=== PATIENT | male | born 1955 | race Caucasian/White ===

== ENCOUNTER 2019-06-11 08:11 | Emergency (ER) | payer BC ==
[2019-06-11] MEDS ORDERED: Diazepam 2 MG Tab PO ONE (09:53)
--- NOTE | 2019-06-11 09:56 | EDM.PDOC ---
<Machelle Mclain - Last Filed: 06/11/19 09:39> ED HPI GENERAL MEDICAL PROBLEM - General Chief Complaint: Neuro Symptoms/Deficits Stated Complaint: DIZZY AND LT LEG PAIN Time Seen by Provider: 06/11/19 09:14 Source of Information: Reports: Patient, Significant Other History Limitations: Reports: No Limitations - History of Present Illness INITIAL COMMENTS - FREE TEXT/NARRATIVE: Patient is a pleasant 64-year-old male with a history of chronic pain and a pain pump implanted on his right side presents to the ED today for dizziness that has been present for the past five weeks. He states he feels like he is spinning and the room is still. This has caused him to be nauseous at times to the point where he has almost vomited. He has a Dilaudid pain pump for nerve entrapment in his abdomen from multiple hernia repairs. His reports that he goes in to get the pump refilled every three months and the dose is increased by 7% each time she believes. It was last refilled May 01, 2019. Roughly four days after it was filled the patient developed dizziness. He went to the [facility] to be evaluated for the dizziness and left hand and facial numbness. The [facility] told him to take Dramamine and go to his PCP. The Dramamine did not help the dizziness. The next day he got in to see Dr. Cardozo, his PCP, who worked him up for a stroke, including a CT scan of his head, a carotid US, and an echocardiogram, which were all negative. Dr. Cardozo diagnosed him with Benign Paroxysmal Positional Vertigo and sent him to PT for evaluation and treatment. He has seen PT a couple times and has had the Wyatt maneuvers done with no relief from the dizziness. He has also gone to his chiropractor for manipulations of his neck with no relief from the dizziness either. His recently started giving him Benadryl per Dr. Cardozo recommendation and this has not helped either. He also reports left knee pain that started after he fell about two months ago. He has bilateral knee replacements. He is worried that he may have damaged his left artificial knee when he fell. He cannot remember how he fell or what part of his body he hit. The pain increases with weight-bearing activities. He also reports he has headaches intermittently throughout the past month. He has a headache currently and rates it a 5/10 located on the top of his head. Duration: Week(s):, Constant Left Knee Pain Score (Numeric/FACES): 8 - Related Data Allergies Allergy/AdvReac Type Severity Reaction Status Date / Time carbamazepine [From Tegretol] Allergy Liver Verified 06/11/19 08:46 Problems morphine Allergy Itching Verified 06/11/19 08:46 oxycodone Allergy Itching Verified 06/11/19 08:46 Home Meds: Home Meds Aspirin [Halfprin] 81 mg PO Q48H 06/11/19 [History] Carbidopa/Levodopa [Carbidopa-Levo 25-100 MG ODT] 2 tab PO BEDTIME 06/11/19 [ History] Cyclobenzaprine [Flexeril] 10 mg PO BID 06/11/19 [History] Diclofenac Sodium [Voltaren 1% Gel] 2 gram TOP QID 06/11/19 [History] FLUoxetine HCl [Fluoxetine HCl] 60 mg PO DAILY 06/11/19 [History] Fish Oil/[place]-3 Fatty Acids [Fish Oil 1,000 MG] 1,000 mg PO DAILY 06/11/19 [ History] Gabapentin [Neurontin] 600 mg PO TID 06/11/19 [History] HYDROmorphone [Dilaudid] 4 mg PO Q4H PRN 06/11/19 [History] Multivitamin [Multivitamins] 1 each PO DAILY 06/11/19 [History] Pravastatin [Pravachol] 40 mg PO DAILY 06/11/19 [History] Tamsulosin [Flomax] 0.4 mg PO DAILY 06/11/19 [History] Past Medical History - Past Surgical History GI Surgical History: Reports: Hernia, Abdominal Musculoskeletal Surgical History: Reports: Knee Replacement Social & Family History - Tobacco Use Smoking Status *Q: Never Smoker - Caffeine Use Caffeine Use: Reports: Coffee - Recreational Drug Use Recreational Drug Use: No ED ROS GENERAL - Review of Systems Review Of Systems: See Below Constitutional: Reports: No Symptoms. Denies: Fever, Chills, Weakness, Decreased Appetite HEENT: Reports: Vertigo. Denies: Ear Pain, Eye Pain, Throat Pain Respiratory: Reports: No Symptoms. Denies: Shortness of Breath, Wheezing, Cough Cardiovascular: Reports: No Symptoms. Denies: Chest Pain, Edema, Lightheadedness, Syncope GI/Abdominal: Reports: No Symptoms. Denies: Abdominal Pain, Diarrhea, Nausea, Vomiting : Reports: No Symptoms. Denies: Dysuria Musculoskeletal: Reports: Joint Pain (left knee), Joint Swelling (left knee). Denies: Neck Pain, Back Pain Skin: Reports: No Symptoms. Denies: Rash, Erythema Neurological: Reports: Dizziness, Headache. Denies: Numbness, Syncope, Tingling , Weakness Psychiatric: Reports: No Symptoms ED EXAM, NEURO - Physical Exam Exam: See Below Exam Limited By: No Limitations General Appearance: Alert, WD/WN, No Apparent Distress Eye Exam: Bilateral Eye: Nystagmus (with lateral eye movements), PERRL Ears: Normal External Exam, Normal Canal, Hearing Grossly Normal, Normal TMs Nose: Normal Inspection, Normal Mucosa, No Blood Throat/Mouth: Normal Inspection, Normal Lips, Normal Teeth, Normal Gums, Normal Oropharynx, Normal Voice, No Airway Compromise Head Exam: Atraumatic, Normocephalic Neck: Normal Inspection, Supple, Non-Tender, Full Range of Motion Respiratory/Chest: No Respiratory Distress, Lungs Clear, Normal Breath Sounds, No Accessory Muscle Use, Chest Non-Tender Cardiovascular: Normal Peripheral Pulses, Regular Rate, Rhythm, No Edema, No Gallop, No Murmur GI/Abdominal: Normal Bowel Sounds, Soft, No Organomegaly, No Distention, No Mass , Tender (left quadrants from multiple hernia repairs and nerve entrapment in mesh) Neurological: Alert, Normal Mood/Affect, Normal Dorsiflexion, CN II-XII Intact, Normal Plantar Flexion, No Motor/Sensory Deficits, Oriented x 3 Back Exam: Normal Inspection, Full Range of Motion (for patient's ability) Extremities: No Pedal Edema, Normal Capillary Refill, Joint Swelling (mild left knee), Limited Range of Motion (left knee due to pain) Psychiatric: Normal Affect, Normal Mood Skin Exam: Warm, Dry, Intact, Normal Color, No Rash Course - Vital Signs Last Recorded V/S: Last Vital Signs Temp 96.7 F L 06/11/19 08:41 Pulse 79 06/11/19 08:41 Resp 10 L 06/11/19 08:41 BP 123/78 06/11/19 08:41 Pulse Ox 78 L 06/11/19 11:26 - Orders/Labs/Meds Orders: Active Orders 24 hr Category Date Time Status Cardiac Monitoring [RC] . DIRECTED Care 06/11/19 09:53 Active Oxygen Therapy [RC] ASDIRECTED Care 06/11/19 11:26 Active Labs: Laboratory Tests 06/11/19 06/11/19 Range/Units 10:35 10:35 WBC 5.27 (4.23-9.07) K/mm3 RBC 5.33 (4.63-6.08) M/mm3 Hgb 13.4 L (13.7-17.5) gm/dl Hct 42.5 (40.1-51.0) % MCV 79.7 (79.0-92.2) fl MCH 25.1 L (25.7-32.2) pg MCHC 31.5 L (32.2-35.5) g/dl RDW Std Deviation 66.2 H (35.1-43.9) fL Plt Count 187 (163-337) K/mm3 MPV 9.0 L (9.4-12.3) fl Neut % (Auto) 65.8 (34.0-67.9) % Lymph % (Auto) 22.8 (21.8-53.1) % [place] % (Auto) 7.4 (5.3-12.2) % Eos % (Auto) 3.4 (0.8-7.0) Baso % (Auto) 0.6 (0.1-1.2) % Neut # (Auto) 3.47 (1.78-5.38) K/mm3 Lymph # (Auto) 1.20 L (1.32-3.57) K/mm3 [place] # (Auto) 0.39 (0.30-0.82) K/mm3 Eos # (Auto) 0.18 (0.04-0.54) K/mm3 Baso # (Auto) 0.03 (0.01-0.08) K/mm3 Sodium 140 (136-145) mEq/L Potassium 4.5 (3.5-5.1) mEq/L Chloride 103 (98-107) mEq/L Carbon Dioxide 30 (21-32) mEq/L Anion Gap 11.5 (5-15) BUN 16 (7-18) mg/dL Creatinine 0.7 (0.7-1.3) mg/dL Est Cr Clr Drug Dosing 94.47 mL/min Estimated GFR (MDRD) > 60 (>60) mL/min BUN/Creatinine Ratio 22.9 H (14-18) Glucose 99 (80-115) mg/dL Calcium 9.0 (8.5-10.1) mg/dL Magnesium 1.8 (1.8-2.4) mg/dl Total Bilirubin 0.7 (0.2-1.0) mg/dL AST 20 (15-37) U/L ALT 29 (16-63) U/L Alkaline Phosphatase 112 (46-116) U/L Total Protein 6.6 (6.4-8.2) g/dl Albumin 3.5 (3.4-5.0) g/dl Globulin 3.1 gm/dL Albumin/Globulin Ratio 1.1 (1-2) Meds: Medications Discontinued Medications Generic Name Dose Route Start Last Admin Trade Name Freq PRN Reason Stop Dose Admin Diazepam 2 mg 06/11/19 09:53 06/11/19 10:29 Valium PO 06/11/19 09:54 2 mg ONETIME ONE Administration Departure - Departure Disposition: Home, Self-Care 01 Clinical Impression: Vertigo - Discharge Information Referrals: Scott Cardozo MD [Primary Care Provider] - 1 Week Forms: ED Department Discharge Additional Instructions: Take your medication as prescribed. Call Jasmin Lewis and let her know what is going on. I will call you if she calls me back. Follow up with Dr Umaña an polisher dial at [facility] tomorrow at 1:30. Please come early to register. Please return if you are worse. Sepsis Event Note - Evaluation Sepsis Screening Result: No Definite Risk - Focused Exam Vital Signs: Vital Signs Temp Pulse Resp BP Pulse Ox Pulse Ox 06/11/19 11:26 78 L 06/11/19 08:41 96.7 F L 79 10 L 123/78 86 L Date Exam was Performed: 06/11/19 Time Exam was Performed: 09:39 - My Orders Last 24 Hours: My Active Orders 06/11/19 09:53 Cardiac Monitoring [RC] . DIRECTED 06/11/19 11:26 Oxygen Therapy [RC] ASDIRECTED - Assessment/Plan Last 24 Hours: My Active Orders 06/11/19 09:53 Cardiac Monitoring [RC] . DIRECTED 06/11/19 11:26 Oxygen Therapy [RC] ASDIRECTED <Jaiden Zapien - Last Filed: 06/11/19 13:01> Course - Re-Assessments/Exams Free Text/Narrative Re-Assessment/Exam: 06/11/19 12:54 I examined the patient myself and I agree with Machelle's assessment and plan. I ordered labs and some valium 2mg. He did not do good with the valium. It slowed down his respirations. His CBC and CMP look good. The patient was worked up by Dr Cardozo for a stroke. He had a CT, carotid US and echo. All that looked good. He called his pain specialist and they advised him to go to the ER. He also went to PT. He has been using antivert and benadryl and nothing is working. I tried calling JASWINDER Odell his pain specialist but I had to leave a message. I did make an appointment for him to see Dr Umaña at [facility]. Dr Umaña does vertigo assessments. 06/11/19 12:59 The x-ray of his knee shows arthritis and joint prosthesis with no acute changes. Departure - Departure Time of Disposition: 13:00 Condition: Good - Discharge Information *PRESCRIPTION DRUG MONITORING PROGRAM REVIEWED*: Not Applicable *COPY OF PRESCRIPTION DRUG MONITORING REPORT IN PATIENT BRIANNE: Not Applicable Sepsis Event Note - Focused Exam Date Exam was Performed: 06/11/19 Time Exam was Performed: 12:54
--- NOTE | 2019-06-11 11:53 | CR ---
Left knee: Four views of the left knee were obtained. Comparison: Prior left knee exam of 03/10/11. Knee prosthesis is seen. Components are aligned. Underlying bony structures are intact. No acute fracture or dislocation is seen. Joint effusion is noted. Impression: 1. Left knee prosthesis. 2. No acute fracture is appreciated. 3. Joint effusion within the knee. Diagnostic code #3 This report was dictated in [place] Standard Time
== END 2019-06-11 13:15 | disposition home or self-care (01) ==
LOC: JD.ED 08:11
DX: R42 Dizziness and giddiness (principal); M25.562 Pain in left knee; Z96.653 Presence of artificial knee joint, bilateral; Z88.8 Allergy status to other drugs, medicaments and biological substances; Z88.5 Allergy status to narcotic agent; Z79.82 Long term (current) use of aspirin; W19.XXXA Unspecified fall, initial encounter
CPT/HCPCS: 36415; 73564; 80053; 83735; 85025; 99284; A9270; 99283

== ENCOUNTER 2021-02-07 12:03 | Emergency (ER) | payer BC, MEDICARE ==
[2021-02-07] MEDS ORDERED: Sodium Chloride 0.9% 10 ML Syringe FLUSH PRN ×2 (12:52→13:33)
[2021-02-07] MEDS ORDERED: Iopamidol 755 Mg/ML 100 ML Bottle IVPUSH ONE (13:33)
[2021-02-07] MEDS ORDERED: Sodium Chloride 0.9% 100 ML IV SCH (13:45)
--- NOTE | 2021-02-07 13:53 | EDM.PDOC ---
ED HPI GENERAL MEDICAL PROBLEM - General Chief Complaint: Chest Pain Stated Complaint: POSS BLOOD CLOT IN LUNGS Time Seen by Provider: 02/07/21 12:28 Source of Information: Reports: Patient, Provider History Limitations: Reports: No Limitations - History of Present Illness INITIAL COMMENTS - FREE TEXT/NARRATIVE: The patient presents with chest pain. The pain is on the left side. He said it started yesterday after moving a bucket. He went tot he clinic in [place] and they sent him here. They are worried about a PE. He has no fever, chills, cough, shortness of breath, abdominal pain, nausea or vomiting. He has no history of PE or DVT. His oxygen saturations are lower but he is aware of that. He is on pain medications for his back. He has no pain or swelling in his legs. Onset: Gradual Duration: Day(s): Location: Reports: Chest Quality: Reports: Sharp Severity: Moderate Improves with: Reports: None Worsens with: Reports: None Associated Symptoms: Reports: Chest Pain. Denies: Cough, Fever/Chills - Related Data Allergies Allergy/AdvReac Type Severity Reaction Status Date / Time carbamazepine [From Tegretol] Allergy Severe Liver Verified 02/07/21 12:33 Problems morphine Allergy Itching Verified 02/07/21 12:33 oxycodone Allergy Itching Verified 02/07/21 12:33 Home Meds: Home Meds Aspirin [Halfprin] 81 mg PO Q48H 06/11/19 [History] Carbidopa/Levodopa [Carbidopa-Levo 25-100 MG ODT] 2 tab PO BEDTIME 06/11/19 [History] Cyclobenzaprine [Flexeril] 10 mg PO BID 06/11/19 [History] Diclofenac Sodium [Voltaren 1% Gel] 2 gram TOP QID 06/11/19 [History] FLUoxetine HCl [Fluoxetine HCl] 60 mg PO DAILY 06/11/19 [History] Fish Oil/[place]-3 Fatty Acids [Fish Oil 1,000 MG] 1,000 mg PO DAILY 06/11/19 [History] Gabapentin [Neurontin] 600 mg PO TID 06/11/19 [History] HYDROmorphone [Dilaudid] 4 mg PO Q4H PRN 06/11/19 [History] Multivitamin [Multivitamins] 1 each PO DAILY 06/11/19 [History] Pravastatin [Pravachol] 40 mg PO DAILY 06/11/19 [History] Tamsulosin [Flomax] 0.4 mg PO DAILY 06/11/19 [History] Past Medical History - Past Surgical History GI Surgical History: Reports: Hernia, Abdominal Musculoskeletal Surgical History: Reports: Knee Replacement Social & Family History - Tobacco Use Tobacco Use Status *Q: Former Tobacco User Used Tobacco, but Quit: Yes Month/Year Tobacco Last Used: "many Many years ago" - Caffeine Use Caffeine Use: Reports: Coffee - Recreational Drug Use Recreational Drug Use: No ED ROS GENERAL - Review of Systems Review Of Systems: See Below Constitutional: Reports: No Symptoms HEENT: Reports: No Symptoms Respiratory: Reports: No Symptoms Cardiovascular: Reports: Chest Pain Endocrine: Reports: No Symptoms GI/Abdominal: Reports: No Symptoms : Reports: No Symptoms Musculoskeletal: Reports: No Symptoms ED EXAM, GENERAL - Physical Exam Exam: See Below Exam Limited By: No Limitations General Appearance: Alert, No Apparent Distress Ears: Normal External Exam Nose: Normal Inspection Throat/Mouth: Normal Inspection Head: Atraumatic, Normocephalic Neck: Normal Inspection Respiratory/Chest: No Respiratory Distress, Lungs Clear, Normal Breath Sounds Cardiovascular: Regular Rate, Rhythm, No Edema, No Murmur GI/Abdominal: Soft, Non-Tender, No Organomegaly, No Mass Back Exam: Normal Inspection Extremities: Normal Inspection #1 Interpretation EKG Date: 02/07/21 Time: 13:47 Rhythm: NSR Rate (Beats/Min): 62 Balsam: LAD-Left Balsam Deviation P-Wave: Present QRS: Normal ST-T: Normal QT: Normal Course - Vital Signs Last Recorded V/S: Last Vital Signs Temp 96.7 F L 02/07/21 12:33 Pulse 67 02/07/21 14:51 Resp 14 02/07/21 14:51 BP 117/69 02/07/21 14:51 Pulse Ox 93 L 02/07/21 14:51 - Orders/Labs/Meds Orders: Active Orders 24 hr Category Date Time Status Cardiac Monitoring [RC] . DIRECTED Care 02/07/21 12:52 Active Peripheral IV Care [RC] . DIRECTED Care 02/07/21 12:54 Active Pulse Oximetry [RC] CONTINUOUS Care 02/07/21 12:53 Active Sodium Chloride 0.9% [Normal Saline] 100 ml Med 02/07/21 13:45 Active IV ASDIRECTED Sodium Chloride 0.9% [Saline Flush] Med 02/07/21 12:52 Active 10 ml FLUSH ASDIRECTED PRN Sodium Chloride 0.9% [Saline Flush] Med 02/07/21 13:33 Active 10 ml FLUSH ONETIME PRN Peripheral IV Insertion Adult [OM.PC] Stat Oth 02/07/21 12:52 Ordered Medication Orders Sodium Chloride (Normal Saline) 100 mls @ 75 mls/hr IV ASDIRECTED YASMANY Last Admin: 02/07/21 13:40 Dose: 75 mls/hr Documented by: CORNELIA Sodium Chloride (Sodium Chloride 0.9% 10 Ml Syringe) 10 ml FLUSH ASDIRECTED PRN PRN Reason: Keep Vein Open Last Admin: 02/07/21 13:30 Dose: 10 ml Documented by: SIDDHARTH Sodium Chloride (Sodium Chloride 0.9% 10 Ml Syringe) 10 ml FLUSH ONETIME PRN PRN Reason: IV FLUSH Last Admin: 02/07/21 13:40 Dose: 10 ml Documented by: CORNELIA Labs: Laboratory Tests 02/07/21 02/07/21 02/07/21 Range/Units 13:20 13:20 13:20 WBC 6.32 (4.23-9.07) K/mm3 RBC 4.93 (4.63-6.08) M/mm3 Hgb 14.3 (13.7-17.5) gm/dl Hct 45.1 (40.1-51.0) % MCV 91.5 D (79.0-92.2) fl MCH 29.0 (25.7-32.2) pg MCHC 31.7 L (32.2-35.5) g/dl RDW Std Deviation 48.8 H (35.1-43.9) fL Plt Count 185 (163-337) K/mm3 MPV 10.1 (9.4-12.3) fl Neut % (Auto) 71.8 H (34.0-67.9) % Lymph % (Auto) 19.0 L (21.8-53.1) % [place] % (Auto) 6.5 (5.3-12.2) % Eos % (Auto) 1.9 (0.8-7.0) Baso % (Auto) 0.3 (0.1-1.2) % Neut # (Auto) 4.54 (1.78-5.38) K/mm3 Lymph # (Auto) 1.20 L (1.32-3.57) K/mm3 [place] # (Auto) 0.41 (0.30-0.82) K/mm3 Eos # (Auto) 0.12 (0.04-0.54) K/mm3 Baso # (Auto) 0.02 (0.01-0.08) K/mm3 D-Dimer, Quantitative 0.64 H (0.19-0.50) mg/L Sodium 140 (136-145) mEq/L Potassium 4.1 (3.5-5.1) mEq/L Chloride 102 (98-107) mEq/L Carbon Dioxide 31 (21-32) mEq/L Anion Gap 11.1 (5-15) BUN 19 H (7-18) mg/dL Creatinine 0.8 (0.7-1.3) mg/dL Est Cr Clr Drug Dosing 80.08 mL/min Estimated GFR (MDRD) > 60 (>60) mL/min BUN/Creatinine Ratio 23.8 H (14-18) Glucose 129 H (70-99) mg/dL Calcium 8.8 (8.5-10.1) mg/dL Total Bilirubin 0.5 (0.2-1.0) mg/dL AST 35 (15-37) U/L ALT 53 (16-63) U/L Alkaline Phosphatase 124 H (46-116) U/L Troponin I < 0.017 (0.00-0.056) ng/mL Total Protein 7.0 (6.4-8.2) g/dl Albumin 3.7 (3.4-5.0) g/dl Globulin 3.3 gm/dL Albumin/Globulin Ratio 1.1 (1-2) Meds: Medications Generic Name Dose Route Start Last Admin Trade Name Freq PRN Reason Stop Dose Admin Sodium Chloride 100 mls @ 75 mls/hr 02/07/21 13:45 02/07/21 13:40 Normal Saline IV 75 mls/hr ASDIRECTED YASMANY Administration Sodium Chloride 10 ml 02/07/21 12:52 02/07/21 13:30 Sodium Chloride 0.9% 10 Ml Syringe FLUSH 10 ml ASDIRECTED PRN Administration Keep Vein Open Sodium Chloride 10 ml 02/07/21 13:33 02/07/21 13:40 Sodium Chloride 0.9% 10 Ml Syringe FLUSH 10 ml ONETIME PRN Administration IV FLUSH Discontinued Medications Generic Name Dose Route Start Last Admin Trade Name Katrina PRN Reason Stop Dose Admin Iopamidol 100 ml 02/07/21 13:33 02/07/21 13:40 Iopamidol 755 Mg/Ml 100 Ml Bottle IVPUSH 02/07/21 13:34 100 ml ONETIME ONE Administration - Re-Assessments/Exams Free Text/Narrative Re-Assessment/Exam: 02/07/21 13:54 I ordered and IV saline lock, EKG, labs and a CT angio of his chest. His EKG shows a NSR with no acute changes. 02/07/21 15:02 His CBC looks good. His D-dimer is elevated at 0.64. His glucose is elevated at 129. His alk phos is elevated at 124. His troponin is negative. His CT angio shows no findings of PE. Slight atelectasis or scarring within the left base as well as the left upper lung. Mild coronary artery calcification. This appears to be chest wall pain. I will discharge him home. Departure - Departure Time of Disposition: 15:10 Disposition: Home, Self-Care 01 Condition: Good Clinical Impression: Atypical chest pain Referrals: Scott Cardozo MD [Primary Care Provider] - 1 Week Forms: ED Department Discharge Additional Instructions: Take tylenol or motrin as needed for pain. Follow up with your doctor as needed. Please return if you are worse. Sepsis Event Note (ED) - Focused Exam Vital Signs: Vital Signs Temp Pulse Resp BP Pulse Ox 02/07/21 14:51 67 14 117/69 93 L 02/07/21 12:33 96.7 F L 72 18 141/74 H 96 - My Orders Last 24 Hours: My Active Orders 02/07/21 12:52 Cardiac Monitoring [RC] . DIRECTED Sodium Chloride 0.9% [Saline Flush] 10 ml FLUSH ASDIRECTED PRN Peripheral IV Insertion Adult [OM.PC] Stat 02/07/21 12:53 Pulse Oximetry [RC] CONTINUOUS 02/07/21 12:54 Peripheral IV Care [RC] . DIRECTED 02/07/21 13:33 Sodium Chloride 0.9% [Saline Flush] 10 ml FLUSH ONETIME PRN 02/07/21 13:45 Sodium Chloride 0.9% [Normal Saline] 100 ml IV ASDIRECTED - Assessment/Plan Last 24 Hours: My Active Orders 02/07/21 12:52 Cardiac Monitoring [RC] . DIRECTED Sodium Chloride 0.9% [Saline Flush] 10 ml FLUSH ASDIRECTED PRN Peripheral IV Insertion Adult [OM.PC] Stat 02/07/21 12:53 Pulse Oximetry [RC] CONTINUOUS 02/07/21 12:54 Peripheral IV Care [RC] . DIRECTED 02/07/21 13:33 Sodium Chloride 0.9% [Saline Flush] 10 ml FLUSH ONETIME PRN 02/07/21 13:45 Sodium Chloride 0.9% [Normal Saline] 100 ml IV ASDIRECTED
--- NOTE | 2021-02-07 14:21 | CT ---
CT chest Technique: Multiple axial sections through the chest were obtained. Intravenous contrast was utilized. Study has been performed as a pulmonary angiogram protocol. Comparison: No prior chest imaging is available. Findings: Pulmonary arteries are moderately well opacified. No filling defects are seen to indicate pulmonary emboli. Thoracic aorta shows no aneurysm. Mediastinum and hilar regions show no adenopathy or mass. Mild coronary artery calcification is seen. No pericardial thickening is seen. Visualized upper abdominal structures show calcified granulomas within the spleen. Fat-containing anterior abdominal hernia is noted within the upper abdomen. Lung window settings were reviewed. Slight atelectasis versus scarring is seen within the left upper lung and left lower lung. Lungs otherwise are clear with no acute parenchymal change. Bone window settings were reviewed which show scattered disc space narrowing and endplate spurring within the thoracic spine. No acute osseous abnormality is appreciated. Impression: 1. No findings of pulmonary embolism. 2. Slight atelectasis or scarring within the left base as well as left upper lung. 3. Mild coronary artery calcification. 4. Other findings believed to be chronic as described above. Diagnostic code #2
== END 2021-02-07 15:32 | disposition home or self-care (01) ==
LOC: JD.ED 12:03
DX: R07.89 Other chest pain (principal); Z88.5 Allergy status to narcotic agent; Z88.8 Allergy status to other drugs, medicaments and biological substances; Z87.891 Personal history of nicotine dependence
CPT/HCPCS: 36415; 71275; 80053; 84484; 85025; 85379; 93005; 99285; Q9967